=== PATIENT | female | born 2000 | race Caucasian/White ===

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

== ENCOUNTER → 2019-07-23 | Outpatient (CLI) | payer BC, SELFPAY ==
--- NOTE | 2019-07-23 15:07 | US_ITS ---
STUDY: THYROID ULTRASOUND REASON FOR EXAM: Female, 18 years old. ENLARGED THYROID TECHNIQUE: Ultrasound evaluation of the thyroid was performed with real-time and static kaiser-scale imaging. COMPARISON: None. FINDINGS: RIGHT LOBE: The right lobe of the thyroid gland measures 4.2 x 1.6 x 1.6 cm. There is a homogeneous echotexture. There are no demonstrated solid, cystic or complex lesions. LEFT LOBE: The left lobe of the thyroid gland measures 4.4 x 1.7 x 1.2 cm. There is a homogeneous echotexture. There are no demonstrated solid, cystic or complex lesions. ISTHMUS: The isthmus measures 3 mm. US/Thyroid IMPRESSION: Normal ultrasound examination of the thyroid. Electronically Signed: Chuy Ortega MD at 13:01 EDT , Service support ,
== END | disposition home or self-care (01) ==
LOC: US 15:05
PROVIDERS: PCP Family Medicine; Referring Provider Family Medicine; Visit Provider Family Medicine
DX: E01.0 Iodine-deficiency related diffuse (endemic) goiter (principal)
CPT/HCPCS: 76536

== ENCOUNTER → 2019-07-31 | Outpatient (CLI) | payer BC, SELFPAY ==
[2019-07-31 17:38] LABS: Absolute Lymphocyte Count 2.97 X10^3/uL (0.83-4.51); Absolute Neutrophil Count 5.2 X10^3/uL (2.0-7.7); Basophil# 0.07 X10^3/uL; Basophil% 0.8 % (0-1); Eosinophil# 0.16 X10^3/uL; Eosinophils% 1.8 % (0-5); Hematocrit 41.9 % (37-47); Hemoglobin 13.8 g/dL (12.0-15.0); Lymphocyte # 2.97 X10^3/ul (4.0); Lymphocyte % 32.8 % (19-41); Mean Corp Hgb Conc 32.9 g/dL (32-36); Mean Corpuscular Hgb 27.3 pg (27.0-32.0); Mean Platelet Vol. 10.1 fl (6.2-12.0); Monocyte# 0.57 X10^3/uL; Monocyte% 6.3 % (0-10); NRBC Flagged by Analyzer 0 % (0-5); Neutrophil # 5.24 X10^3/uL (2.7-7.7); Neutrophil % 57.9 % (47-70); Platelet Count 345 K/mm3 (150-450); RBC Distribution Width CV 14.6 % (11.6-14.6); RBC Distribution Width SD 43.8 fl (35.1-43.9); Red Blood Count 5.05 M/mm3 (4.2-5.4); White Blood Count 9.1 K/mm3 (4.4-11.0)
[2019-07-31 19:03] LABS: ALB/GLOB Ratio 0.9 RATIO (0.9-2.4); AST(SGOT) 16 U/L (15-37); Alanine Aminotransfer ALT/SGPT 25 U/L (13-56); Albumin, Serum 3.9 g/dL (3.2-5.0); Alkaline Phosphatase 81 U/L (45-117); Anion Gap 9 (5-15); BUN 11 mg/dL (7-18); BUN/Creat Ratio 12.9 RATIO (10-20); Calcium,Total 8.7 mg/dL (8.5-10.1); Chloride 105 mmol/L (98-107); Creatinine, Serum 0.85 mg/dL (0.55-1.02); EST Glomerular Filtration Rate 91 mL/min (>60); Est Glom Filt Rate - Afr Amer 110 mL/min (>60); Globulin 4.2 g/dL (2.2-4.2); Glucose 84 mg/dL (74-106); Potassium 3.7 mmol/L (3.5-5.1); Protein, Total 8.1 g/dL (6.4-8.2); Sodium Level 138 mmol/L (136-145); T4 Free Direct 0.88 ng/dL (0.76-1.46); Thyroid Stim Hormone (TSH) 1.21 uIU/mL (0.358-3.74)
[2019-08-04 15:41] LABS: Anti-Thyroglobulin AB < 1.0 IU/mL (0.0-0.9); Thyroglobulin, Serum Qt. 6.7 ng/mL (1.5-38.5); Thyroid Peroxidase AB < 9 IU/mL (0-26)
== END | disposition home or self-care (01) ==
LOC: MFPLAB 15:33
PROVIDERS: PCP Family Medicine; Referring Provider Family Medicine; Visit Provider Family Medicine
DX: E55.9 Vitamin D deficiency, unspecified (principal); J45.909 Unspecified asthma, uncomplicated; E01.0 Iodine-deficiency related diffuse (endemic) goiter; R63.5 Abnormal weight gain
CPT/HCPCS: 36415; 80053; 82306; 84432; 84439; 84443; 85025; 86376; 86800

== ENCOUNTER → 2021-05-12 09:24 | Outpatient (CLI) | payer BC, SELFPAY ==
[2021-05-12 11:11] LABS: Vitamin D,25 Hydroxy 23.3 ng/mL
== END ==
PROVIDERS: PCP Family Medicine; Visit Provider Family Medicine
DX: E55.9 Vitamin D deficiency, unspecified (principal)
CPT/HCPCS: 36415; 82306

== ENCOUNTER → 2021-09-19 | Outpatient (CLI) | payer BC, SELFPAY ==
[2021-09-26 14:25] LABS: HPV Reflexed? NOT INDICATED
== END | disposition home or self-care (01) ==
LOC: LABSPEC 17:31
PROVIDERS: PCP Family Medicine; Visit Provider Nurse Practitioner Women's Health
DX: Z12.4 Encounter for screening for malignant neoplasm of cervix (principal)
CPT/HCPCS: 88175; G0145

== ENCOUNTER → 2021-10-04 | Outpatient (CLI) | payer BC, SELFPAY | END | disposition home or self-care (01) | LOC: PAVLAB 09:29 | PROVIDERS: PCP Family Medicine; Referring Provider Nurse Practitioner Women's Health; Visit Provider Nurse Practitioner Women's Health | DX: N97.0 Female infertility associated with anovulation (principal) | CPT/HCPCS: 36415 ==

== ENCOUNTER → 2021-10-24 | Outpatient (CLI) | payer BC, SELFPAY ==
[2021-10-24 10:45] LABS: Progesterone Level 0.49 ng/mL (See Comment)
[2021-10-24 10:59] LABS: Prolactin 11.4 ng/mL; Thyroid Stim Hormone (TSH) 2.24 uIU/mL (0.358-3.74)
[2021-10-27 17:38] LABS: Testosterone Free 4.5 pg/mL (0.0-4.2)
== END | disposition home or self-care (01) ==
PROVIDERS: PCP Family Medicine; Referring Provider Nurse Practitioner Women's Health; Visit Provider Nurse Practitioner Women's Health
DX: N97.0 Female infertility associated with anovulation (principal); N92.6 Irregular menstruation, unspecified
CPT/HCPCS: 36415; 82627; 84144; 84146; 84402; 84443; 82626

== ENCOUNTER → 2021-12-02 | Outpatient (CLI) | payer BC, SELFPAY ==
[2021-12-02 10:52] LABS: Progesterone Level 3.73 ng/mL (See Comment)
== END | disposition home or self-care (01) ==
LOC: LAB 09:55
PROVIDERS: PCP Family Medicine; Referring Provider Nurse Practitioner Women's Health; Visit Provider Nurse Practitioner Women's Health
DX: N92.6 Irregular menstruation, unspecified (principal)
CPT/HCPCS: 36415; 84144

== ENCOUNTER → 2022-01-12 | Outpatient (CLI) | payer BC, SELFPAY ==
[2022-01-12 10:54] LABS: Vista UDS pH Range 5
[2022-01-12 11:06] LABS: Amphetamine Urine VISTA NEGATIVE (<1000 ng/mL); Barbiturate Urine VISTA NEGATIVE (< 200 ng/mL); Benzodiazepine Urine VISTA NEGATIVE (< 200 ng/mL); Cocaine Urine VISTA NEGATIVE (< 300 ng/mL); Ecstacy Urine VISTA NEGATIVE (< 500 ng/mL); Methadone Urine VISTA NEGATIVE (< 300 ng/mL); PCP Urine VISTA NEGATIVE (< 25 ng/mL); THC Urine VISTA NEGATIVE (< 50 ng/mL)
[2022-01-13 22:06] LABS: Chlamydia By Nucleic Acid AMP Negative (Negative)
[2022-01-15 14:25] LABS: Gonococcus By Nucleic Acid AMP Negative (Negative)
== END | disposition home or self-care (01) ==
LOC: LABSPEC 12:53
PROVIDERS: PCP Family Medicine; Visit Provider Obstetrics & Gynecology
DX: Z34.91 Encounter for supervision of normal pregnancy, unspecified, first trimester (principal)
CPT/HCPCS: 80307; 87086; 87088; 87491; 87591

== ENCOUNTER → 2022-02-10 | Outpatient (CLI) | payer BC, SELFPAY ==
[2022-02-10 10:49] LABS: Absolute Lymphocyte Count 2.94 X10^3/uL (0.83-4.51); Absolute Neutrophil Count 7.1 X10^3/uL (2.0-7.7); Basophil# 0.08 X10^3/uL; Basophil% 0.7 % (0-1); Eosinophil# 0.01 X10^3/uL; Eosinophils% 0.1 % (0-5); Hematocrit 40.5 % (37-47); Hemoglobin 13.6 g/dL (12.0-15.0); Lymphocyte # 2.94 X10^3/ul (0.83-4.51); Lymphocyte % 27.5 % (19-41); Mean Corp Hgb Conc 33.6 g/dL (32-36); Mean Corpuscular Hgb 28.8 pg (27.0-32.0); Mean Corpuscular Volume 85.8 fL (81-99); Mean Platelet Vol. 9.7 fl (6.2-12.0); Monocyte# 0.57 X10^3/uL; Monocyte% 5.3 % (0-10); NRBC Flagged by Analyzer 0 % (0-5); Neutrophil # 7.06 X10^3/uL (2.7-7.7); Neutrophil % 65.9 % (47-70); Platelet Count 326 K/mm3 (150-450); RBC Distribution Width SD 44.1 fl (35.1-43.9); Red Blood Count 4.72 M/mm3 (4.2-5.4); White Blood Count 10.7 K/mm3 (4.4-11.0)
[2022-02-10 11:31] LABS: NATERA MAILED SPECIMEN
[2022-02-10 11:43] LABS: HIV - WCH Non-Reactive (Nonreactive); Hepatitis B Surface Antigen Non-Reactive (Nonreactive); Hepatitis C Antibody Non-Reactive (Nonreactive); Rubella IgG Reactive (Nonreactive); Syphilis Antibodies Non-reactive
== END | disposition home or self-care (01) ==
LOC: PAVLAB 10:21
PROVIDERS: Obstetrics & Gynecology; PCP Family Medicine; Referring Provider Registered Nurse; Visit Provider Registered Nurse
DX: Z34.81 Encounter for supervision of other normal pregnancy, first trimester (principal)
CPT/HCPCS: 36415; 85025; 86703; 86762; 86780; 86803; 86850; 86900; 86901; 87340

== ENCOUNTER → 2022-04-24 | Outpatient (CLI) | payer BC, SELFPAY ==
--- NOTE | 2022-04-24 10:11 | US_ITS ---
EXAM: US , LIMITED CLINICAL INDICATION: growth -- Every 4 weeks growth US TECHNIQUE: Real-time limited ultrasound of the maternal uterus with image documentation. This report was created using [employer] report generation technology. COMPARISON: None. FINDINGS: FETUS: Single live intrauterine . GESTATIONAL AGE: Gestational age by ultrasound: 23 weeks 3 days, SHANNAN 08/18/2022. Gestational age by LMP: 23 weeks 2 days, SHANNAN 08/19/2022. EFW: Estimated weight: 627 g, 64th percentile. BPD: 5.5 cm, 22 weeks 6 days. HC: 21.4 cm, 23 weeks 3 days. AC: 19.2 cm, 23 weeks 6 days. FL: 4.3 cm, 23 weeks 6 days. POSITION: Breech position. HEART RATE: heart rate: 144 bpm. PLACENTA: The placenta is anterior with no previa or other abnormality. AMNIOTIC FLUID: The amount of amniotic fluid is within normal limits for the gestational age. CERVIX: The cervix measures 5.1 cm in length. ADNEXA: The ovaries were not visualized due to the gravid uterus. US/OB Limited With Biometrics IMPRESSION: Single live intrauterine measuring 23 weeks 3 days with no acute abnormalities identified. Electronically Signed: Eloy Bowie MD at 1:23 EST ,
== END | disposition home or self-care (01) ==
LOC: US 10:08
PROVIDERS: PCP Family Medicine; Referring Provider Obstetrics & Gynecology; Visit Provider Obstetrics & Gynecology
DX: O99.212 Obesity complicating pregnancy, second trimester (principal); Z3A.23 23 weeks gestation of pregnancy
CPT/HCPCS: 76816

== ENCOUNTER → 2022-05-25 | Outpatient (CLI) | payer BC, SELFPAY ==
--- NOTE | 2022-05-25 08:39 | US_ITS ---
STUDY: SECOND AND THIRD TRIMESTER OBSTETRICAL ULTRASOUND - LIMITED REASON FOR EXAM: Female, 21 years old . growth LMP: 11/12/2021 PRIOR ULTRASOUND: Comparison is made with prior study dated 04/24/2022. TECHNIQUE: Transabdominal TECHNICAL QUALITY: Adequate. FINDINGS: There is a single intrauterine fetus. The fetus is in a cephalic presentation. There is demonstrated cardiac activity with a heart rate of 130 bpm. There is a normal amniotic fluid volume. The largest amniotic fluid pocket measures 6.16 cm. The amniotic fluid index (BARBRA) is 15.63 cm. The placenta is anterior in location and is not low lying. There are Grade 0 placental changes. The cervix measures 4 cm in length. BIOMETRY: BPD: 6.83 cm: 27 weeks, 3 days HC: 25.66 cm: 27 weeks, 6 days AC: 24.06 cm: 28 weeks, 2 days FL: 5.29 cm: 28 weeks, 1 days Age by LMP: 27 weeks, 5 days. SHANNAN by LMP: 08/19/2022. age by prior US: 27 weeks, 6 days. SHANNAN by prior US: 08/18/2022. age by current US: 27 weeks, 6 days. SHANNAN by current US: 08/18/2022. Estimated weight: 1192 grams, +/- 179 grams, 57 percentile. US/OB Limited With Biometrics IMPRESSION: Single live intrauterine gestation with a mean gestational age of 27 weeks and 6 days. The measurements obtained today fall within the normal expected range. Electronically Signed: Evangelist Boyer MD at 13:03 EST ,
== END | disposition home or self-care (01) ==
LOC: US 08:37
PROVIDERS: PCP Family Medicine; Referring Provider Obstetrics & Gynecology; Visit Provider Obstetrics & Gynecology
DX: O99.212 Obesity complicating pregnancy, second trimester (principal); Z3A.27 27 weeks gestation of pregnancy
CPT/HCPCS: 76816

== ENCOUNTER 2022-06-07 14:20 | Outpatient (CLI) | payer BC, SELFPAY ==
[2022-06-07 14:50] LABS: Absolute Lymphocyte Count 2.35 X10^3/uL (0.83-4.51); Basophil# 0.04 X10^3/uL; Basophil% 0.4 % (0-1); Hematocrit 35.6 % (37-47); Hemoglobin 11.8 g/dL (12.0-15.0); Lymphocyte # 2.35 X10^3/ul (0.83-4.51); Lymphocyte % 23.1 % (19-41); Mean Corp Hgb Conc 33.1 g/dL (32-36); Mean Corpuscular Hgb 28.2 pg (27.0-32.0); Mean Corpuscular Volume 85.2 fL (81-99); Mean Platelet Vol. 10.5 fl (6.2-12.0); Monocyte# 0.72 X10^3/uL; Monocyte% 7.1 % (0-10); NRBC Flagged by Analyzer 0 % (0-5); Neutrophil # 6.98 X10^3/uL (2.7-7.7); Neutrophil % 68.5 % (47-70); Platelet Count 329 K/mm3 (150-450); RBC Distribution Width CV 13.9 % (11.6-14.6); RBC Distribution Width SD 42.8 fl (35.1-43.9); Red Blood Count 4.18 M/mm3 (4.2-5.4); White Blood Count 10.2 K/mm3 (4.4-11.0)
[2022-06-07 15:06] LABS: Glucose Challenge Gest 1H 50g 169 mg/dL (70-140)
[2022-06-07 16:07] VITALS: BP 118/63; PULSE 91; TEMP 37.1; O2SAT 97
[2022-06-07 16:11] VITALS: BMI 38.2
--- NOTE | 2022-06-07 16:17 | US_ITS ---
STUDY: RENAL ULTRASOUND - COMPLETE REASON FOR EXAM: Female, 21 years old. Abd and back pain , , rule out kidney stone TECHNIQUE: Ultrasound evaluation of the kidneys was performed with real-time and static lawler-scale imaging. COMPARISON: None. FINDINGS: RIGHT KIDNEY: Normal location of the right kidney, which is normal in size. The right kidney measures 11.4 cm. There is a normal cortex of the right kidney. The renal cortex measures 1.7 cm. There is no right renal mass or cyst. There are no right renal calculi. There is no right hydronephrosis. DISTAL RIGHT URETER: There is non-visualization of the distal right ureter. There is no demonstrated right ureterovesical junction calculus. There is no demonstrated right ureteral jet. LEFT KIDNEY: Normal location of the left kidney, which is normal in size. The left kidney measures 13.1 cm. There is a normal cortex of the left kidney. The renal cortex measures 2.2 cm. There is no left renal mass or cyst. There are no left renal calculi. There is no left hydronephrosis. DISTAL LEFT URETER: There is non-visualization of the distal left ureter. There is no demonstrated left ureterovesical junction calculus. There is no demonstrated left ureteral jet. BLADDER: The distended urinary bladder has a volume of 158 ml. There is a normal wall thickness of the distended urinary bladder. There is no demonstrated mass within the urinary bladder. There are no demonstrated bladder calculi. US/Kidney and Bladder IMPRESSION: Normal ultrasound of the kidneys and urinary bladder. Electronically Signed: Jed Jurado MD at 18:13 EST ,
[2022-06-07] MEDS: Lactated Ringers 1,000 ML 999 ML IV ×2 (16:40→18:50)
[2022-06-07] MEDS: Ondansetron 4 MG/2 ML Vial IV (16:40)
[2022-06-07 16:52] LABS: HIV - WCH Non-Reactive (Nonreactive); Syphilis Antibodies Non-reactive
[2022-06-07] MEDS: 0.9% Saline Lock 10 ML Syringe IV ×2 (17:54→20:19)
[2022-06-07 19:23] VITALS: BP 125/60; PULSE 71
[2022-06-07 19:24] VITALS: TEMP 36.4
[2022-06-07 19:24] LABS: Mucous, Urine 0 SEEN /hpf (<or=2+); Red Blood Cells-Urine 0 SEEN /hpf (0-5)
[2022-06-07 19:41] LABS: Color, Urine Yellow (Yellow); Glucose, Dipstick 250 mg/dl (Normal); Ketone-Dipstick Negative (Negative); Nitrite-Dipstick Negative (Negative); Occult Blood-Urine Negative /ul (Negative); Protein-Dipstick 30 mg/dl (Negative); Specific Gravity, Urine 1.015 (1.002-1.030); Urine Bilirubin Dipstick Negative (Negative); Urine Clarity Clear (Clear); Urine Urobilinogen Normal (Normal)
[2022-06-07 19:42] LABS: Bacteria 1+ /hpf (None Seen); Leukocyte Esterase-Dipstick 25 /ul (Negative); Squamous Epithelial Cells - UA 5-10 SEEN /hpf (5-10); White Blood Cells 0-5 SEEN /hpf (0-5)
--- NOTE | 2022-06-07 20:04 | OB.TRI.HP_ITS ---
HPI - General HPI Narrative KARLENE RIGGINS, is a 21 F who presents at 29+4 with abdominal pain radiating to lower back occuring every 5-10 minutes. active fetus. denies lof or vb. pain started acutely yesterday and created a band like pain around her abdomen at the level of the umbilicus. ambulation worsens pain, rest and lying down improves. Maternal Data Information SHANNAN Calculator Estimated Delivery Date Method Current WG Current Estimate 08/19/22 LMP (Certain) 29w 4d Other Estimates 08/19/22 Ultrasound #1 29w 4d PFSH PFSH Medical History Asthma Gestational diabetes mellitus (GDM) affecting Home Medications albuterol sulfate 90 mcg/actuation aerosol inhaler (ProAir HFA) 1 - 2 puff inhalation Q4H PRN PRN Asthma #8.5 grams 01/05/22 [Rx Last Taken 1 Day Ago ~06/06/22] ergocalciferol (vitamin D2) 1,250 mcg (50,000 unit) capsule 1,250 mcg PO QWEEK 01/05/22 [History Last Taken 2 Months Ago ~04/07/22] multivitamin no.47-iron fum 27 mg-folate no.1 1 mg-dha 300 mg capsule (PNV-DHA) 2 cap PO DAILY 01/05/22 [History Last Taken 1 Day Ago ~06/06/22] sertraline 150 mg capsule 150 mg PO DAILY #90 caps 05/10/22 [Rx Last Taken 1 Day Ago ~06/06/22] nitrofurantoin monohydrate/macrocrystals 100 mg capsule (Macrobid) 100 mg PO Q12H 5 days #10 caps 06/07/22 [Rx Last Taken Unknown] Allergy/AdvReac Type Severity Reaction Status Date / Time kiwi Allergy Anaphylaxis Verified 06/07/22 16:20 peanut Allergy Anaphylaxis Verified 06/07/22 16:20 Penicillins Allergy Hives Verified 06/07/22 16:20 pineapple Allergy Anaphylaxis Verified 06/07/22 16:20 shrimp Allergy Hives Verified 06/07/22 16:20 Family History Father Hypertension Epilepsy AVM (arteriovenous malformation) Mother FRANCO (nonalcoholic steatohepatitis) Hypertension Epilepsy Surgical History H/O removal of cyst S/P Social History adopted: No household members: spouse and children number of children: 1 current occupational status: unemployed current occupation: [employer] current occupational exposures/hazards: No pets and animals: Yes (Not managing the litterbox) pets and animals: cat(s) history of recent travel: No sexually active: Yes Smoking Status: Former smoker Tobacco: How many years used: 1 how long ago did patient quit smokin years alcohol intake: never substance use type: does not use well-balanced diet: about half the time caffeine: Yes Type: carbonated beverages Number of servings: 1 eating out: 4 or more times/week during the past year weight has: remained stable what type of physical activity do you participate in: none suzette/moravian: Voodoo seatbelt use: always do you feel safe at home: Yes 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 Date Name GA/Weeks Outcome Route Bth Weight Gen Labor Lgth Anesthesia Del [facility] Provider FOB 10/25/18 Kelsey 9'3 Female Delivery Date: 10/25/18 Last Updated by: MD dr garfield Quevedo. 9lbs elective primary Visit Details Expected Delivery Route/Plan RLTCS unless spontaneous labor then would consider TOLAC Plans Covid status: discussed Flu vaccine: obtaining 02/11 Tdap vaccine:obtained Rhogam: given 06/07 LARC form signed: [] Problem list reviewed and updated with the most current plan of care details and appropriate orders placed. Relevant counseling for the gestational age provided. Continue routine care and follow up unless otherwise noted in visit notes/problem list details OB Flowsheet Initial Weight: Not Recorded Date -?-?-?-?-?-?-?-?-?-?-?-?- EGA Weight BP Urine Prot -?-?-?-?-?-?-?-?-?-?-?-?- Glucose FHR FuHt Pres Dilation -?-?-?-?-?-?-?-?-?-?-?-?- Effaced St Visit Note 01/12/22 -?-?-?-?-?-?-?-?-?-?-?-?- 8w 5d 246 lb 132/86 -?-?-?-?-?-?-?-?-?-?-?-?- 180 -?-?-?-?-?-?-?-?-?-?-?-?- SM- CRL cons wit h LMP 02/10/22 -?-?-?-?-?-?-?-?-?-?-?-?- 12w 6d 246 lb 4 oz 111/68 Nega tive -?-?-?-?-?-?-?-?-?-?-?-?- Negative 155 -?-?-?-?-?-?-?-?-?-?-?-?- LC- no cramping/ vb. obtaining NOB labs w/genetic screening today. 03/10/22 -?-?-?-?-?-?-?-?-?-?-?-?- 16w 6d 241 lb 100/72 Negative -?-?-?-?-?-?-?-?-?-?-?-?- Negative 150 -?-?-?-?-?-?-?-?-?-?-?-?- SM- no vb lof cr amping 05/11/22 -?-?-?-?-?-?-?-?-?-?-?-?- 25w 5d 243 lb 4 oz 124/78 Nega tive -?-?-?-?-?-?-?-?-?-?-?-?- Negative 154 25 -?-?-?--?-?-?-?-?-?-?-?-?- MH-No VB, LOF. G ood FM. Denies concerns. 06/07/22 -?-?-?-?-?-?-?-?-?-?-?-?- 29w 4d 243 lb 8 oz 119/75 -?-?-?-?-?-?-?-?-?-?-?-?- 140 29 0 -?-?-?-?-?-?-?-?-?-?-?-?- 0 -4 LC- pt wit h 12/21 abdominal pain that started yesterday, radiated to back. not improved with rest, hydration, tylenol or heat. closed to VE. sent to L&D for r/o UTI, kidney stones, PTL. tdap and rhogam given today NST FHR Rate Baby A Baseline: 120 Variability:: Moderate Accelerations:: 15 x 15 Decelerations:: None NST Reactive:: Yes FHR Category:: Category I Uterine Activity:: occ ctx. 30-40 seconds. no contractions following IVF bolus. Assessment & Plan (1) UTI (urinary tract infection) during : COMMENT: Macrobid started on 06/07. follow UC (2) Impaired glucose in , antepartum: COMMENT: failed one hour glucose. 3hour gtt ordered. (3) Rh negative status during : COMMENT: Rhogam @ 28 weeks and PRN bleeding. Rhogam given 06/07/22 (4) Previous delivery affecting : COMMENT: Requesting RLTCS with SM on 08/11/22(FOB bday) (5) Obesity affecting : QUALIFIERS: Trimester: second trimester Qualified Code(s): O99.212 - Obesity complicating , second trimester COMMENT: 1 TM GCT encoruaged healthy weight gain, growth US Q 4 weeks 04/24 nl growth, 05/25 nl growth EFW 1192+/- 179 57% (6) Supervision of high risk , antepartum: COMMENT: PRR , SHANNAN 08/19/22, girl bridgett Cole, - Abisai (7) : QUALIFIERS: Weeks of gestation: 29 weeks Qualified Code(s): Z3A.29 - 29 weeks gestation of COMMENT: NIPT low risk, discussed carrier testing, declined afp. (8) Depression: COMMENT: sertraline 150mg daily PLAN: Plan Patient presents for triage evaluation secondary to abdominal pain FHT: Moderate variability reactive no decelerations category I tracing [place]: irreg Contractions Assessment and plan: Reactive NST, reassuring maternal and status patient discharged to home to follow-up in office. See problem list details for additional plan information. Charges/Coding Procedures Urinary/Genital [id number]: [id number] non-stress test Interp
[2022-06-07] MEDS: Nitrofurantoin Macrocrystals 100 MG Capsule PO (20:41)
== END 2022-06-07 20:48 | disposition home or self-care (01) ==
LOC: PAVLAB 14:21 → LAB 14:25 → WPOUT 16:03 → WP 16:04
PROVIDERS: Registered Nurse; PCP Family Medicine; Referring Provider Obstetrics & Gynecology; Visit Provider Obstetrics & Gynecology
DX: O09.93 Supervision of high risk pregnancy, unspecified, third trimester (principal); O23.43 Unspecified infection of urinary tract in pregnancy, third trimester; Z87.891 Personal history of nicotine dependence; R10.9 Unspecified abdominal pain; O99.810 Abnormal glucose complicating pregnancy; Z67.91 Unspecified blood type, Rh negative; O99.213 Obesity complicating pregnancy, third trimester; Z3A.29 29 weeks gestation of pregnancy; O99.343 Other mental disorders complicating pregnancy, third trimester
CPT/HCPCS: 96374; 36415; 76770; 81001; 82950; 85025; 86703; 86780; 86850; 86900; 86901; 87086; 87088; 99221; J7120; A4216; G0378; J2405

== ENCOUNTER → 2022-06-26 | Outpatient (CLI) | payer BC, SELFPAY ==
--- NOTE | 2022-06-26 08:51 | US_ITS ---
STUDY: SECOND AND THIRD TRIMESTER OBSTETRICAL ULTRASOUND REASON FOR EXAM: Female, 21 years old growth LMP: 11/12/2021. TECHNIQUE: Transabdominal TECHNICAL QUALITY: Adequate. PRIOR ULTRASOUND: Comparison is made with prior study dated 05/25/2022. FINDINGS: There is a single intrauterine fetus. The fetus is in a cephalic presentation. There is demonstrated cardiac activity with a heart rate of 124 bpm. There is a normal amniotic fluid volume. The largest amniotic fluid pocket measures 6.3 cm. The amniotic fluid index (BARBRA) is 18.9 cm. The placenta is anterior in location and is not low lying. There are Grade 1 placental changes. The cervix measures 3.9 cm in length. The adnexal regions are not visualized. BIOMETRY: BPD: 8 cm: 32 weeks, 0 days HC: 30.4 cm: 33 weeks, 5 days AC: 30.4 cm: 34 weeks, 2 days FL: 6.4 cm: 33 weeks, 1 days CI: 77% FL/BPD: 80% FL/HC: FL/AC: 21% HC/AC: 1.00 age by current US: 32 weeks, 6 days. SHANNAN by current US: 08/15/2022. Estimated weight: 2257 grams, +/- 339 grams, 82 %. age by prior US: 32 weeks, 3 days. SHANNAN by prior US: 08/18/2022. Age by LMP: 32 weeks, 2 days. SHANNAN by LMP: 08/19/2022. US/OB Limited With Biometrics IMPRESSION: Single live intrauterine gestation with a mean gestational age of 32 weeks and 3 days. The measurements obtained today fall within the normal expected range. Electronically Signed: Evangelist Boyer MD at 12:36 EST ,
== END | disposition home or self-care (01) ==
LOC: US 08:49
PROVIDERS: PCP Family Medicine; Visit Provider Obstetrics & Gynecology
DX: O09.212 Supervision of pregnancy with history of pre-term labor, second trimester (principal); Z3A.00 Weeks of gestation of pregnancy not specified
CPT/HCPCS: 76816

== ENCOUNTER 2022-07-03 11:30 | Outpatient (RCR) | payer BC, SELFPAY | END 2022-07-11 23:59 | LOC: DC 11:30 | PROVIDERS: PCP Family Medicine; Visit Provider Nurse Practitioner Women's Health | DX: O24.419 Gestational diabetes mellitus in pregnancy, unspecified control (principal) | CPT/HCPCS: G0108 ==

== ENCOUNTER → 2022-07-24 | Outpatient (CLI) | payer BC, SELFPAY ==
--- NOTE | 2022-07-24 10:36 | US_ITS ---
STUDY: SECOND AND THIRD TRIMESTER OBSTETRICAL ULTRASOUND - LIMITED REASON FOR EXAM: Female, 21 years old routine survey LMP: 11/12/2021 PRIOR ULTRASOUND: 06/26/2022 TECHNIQUE: Transabdominal TECHNICAL QUALITY: Adequate. FINDINGS: There is a single intrauterine fetus. The fetus is in a cephalic presentation. There is demonstrated cardiac activity with a heart rate of 130 bpm. There is a normal amniotic fluid volume. The largest amniotic fluid pocket measures 6.8 cm. The amniotic fluid index (BARBRA) is 21.8 cm. The placenta is anterior in location and is not low lying. There are Grade 2 placental changes. The cervix was not measured BIOMETRY: BPD: 8.8 cm: 35 weeks, 5 days HC: 32.6 cm: 37 weeks, 0 days AC: 35.0 cm: 38 weeks, 6 days FL: 7.2 cm: 37 weeks, 0 days age by prior US: 36 weeks, 6 days. SHANNAN by prior US: 08/15/2022. age by current US: 37 weeks, 3 days. SHANNAN by current US: 08/11/2022. Estimated weight: 3361 grams, +/- 501 grams, 90 percentile. US/OB Limited With Biometrics IMPRESSION: Single live intrauterine at 37 weeks, 3 days by current ultrasound with SHANNAN of 08/11/2022. Heart rate at 130 bpm. No suspicious sonographic findings, normal growth noted since the previous study Electronically Signed: Jamey Campbell MD at 12:10 EDT ,
== END | disposition home or self-care (01) ==
LOC: US 10:34
PROVIDERS: PCP Family Medicine; Referring Provider Nurse Practitioner Women's Health; Visit Provider Nurse Practitioner Women's Health
DX: O24.419 Gestational diabetes mellitus in pregnancy, unspecified control (principal); Z3A.00 Weeks of gestation of pregnancy not specified
CPT/HCPCS: 76816

== ENCOUNTER → 2022-07-25 | Outpatient (CLI) | payer BC, SELFPAY | END | disposition home or self-care (01) | LOC: LABSPEC 15:43 | PROVIDERS: PCP Family Medicine; Visit Provider Nurse Practitioner Women's Health | DX: Z34.90 Encounter for supervision of normal pregnancy, unspecified, unspecified trimester (principal) | CPT/HCPCS: 87081 ==

== ENCOUNTER → 2022-08-03 | Outpatient (CLI) | payer BC, SELFPAY ==
[2022-08-03 12:22] LABS: ROM Internal Control Test YES-OK TO RESULT pt. (Internal QC); ROM Patient Test Negative (Negative)
== END | disposition home or self-care (01) ==
LOC: LABSPEC 11:23
PROVIDERS: PCP Family Medicine; Referring Provider Obstetrics & Gynecology; Visit Provider Obstetrics & Gynecology
DX: O26.899 Other specified pregnancy related conditions, unspecified trimester (principal); R35.0 Frequency of micturition; N89.8 Other specified noninflammatory disorders of vagina; Z3A.00 Weeks of gestation of pregnancy not specified; O99.891 Other specified diseases and conditions complicating pregnancy
CPT/HCPCS: 84112; 87086; 87088

== ENCOUNTER 2022-08-07 15:40 | Inpatient (IN) | payer BC, SELFPAY ==
[2022-08-07] VITALS (26 sets, daily range): BP systolic 107–142; BP diastolic 41–90; PULSE 77–102; RESP 12–18; TEMP 36.2–37.2; O2SAT 93–100; BMI 40.0
[2022-08-07 14:36] LABS: Hematocrit 35.8 % (37-47); Hemoglobin 11.9 g/dL (12.0-15.0); Mean Corp Hgb Conc 33.2 g/dL (32-36); Mean Corpuscular Hgb 26.7 pg (27.0-32.0); Mean Corpuscular Volume 80.4 fL (81-99); Mean Platelet Vol. 11.2 fl (6.2-12.0); Platelet Count 266 K/mm3 (150-450); RBC Distribution Width CV 14.5 % (11.6-14.6); RBC Distribution Width SD 42.1 fl (35.1-43.9); Red Blood Count 4.45 M/mm3 (4.2-5.4)
[2022-08-07 15:17] LABS: Protein, Urine (Random) 116.6 mg/dL (<11.9); Protein:Creat Ratio 440 mg/g CRE (0-200)
[2022-08-07 15:20] LABS: AST(SGOT) 13 U/L (15-37); Alanine Aminotransfer ALT/SGPT 19 U/L (13-56); Creatinine, Serum 0.55 mg/dL (0.55-1.02); EST Glomerular Filtration Rate 147 mL/min (>60); Est Glom Filt Rate - Afr Amer 178 mL/min (>60); Estimated Creatinine Clearance 156.02 ml/min
[2022-08-07] MEDS: Lactated Ringers 1,000 ML 999 ML IV (16:00)
[2022-08-07 16:18] LABS: Absolute Lymphocyte Count 2.03 X10^3/uL (0.83-4.51); Absolute Neutrophil Count 5.3 X10^3/uL (2.0-7.7); Basophil# 0.04 X10^3/uL; Basophil% 0.5 % (0-1); Hematocrit 37.6 % (37-47); Hemoglobin 12.4 g/dL (12.0-15.0); Lymphocyte # 2.03 X10^3/ul (0.83-4.51); Lymphocyte % 25.3 % (19-41); Mean Corpuscular Hgb 26.3 pg (27.0-32.0); Mean Corpuscular Volume 79.8 fL (81-99); Mean Platelet Vol. 11.5 fl (6.2-12.0); Monocyte# 0.63 X10^3/uL; Monocyte% 7.8 % (0-10); NRBC Flagged by Analyzer 0 % (0-5); Platelet Count 295 K/mm3 (150-450); RBC Distribution Width CV 14.6 % (11.6-14.6); RBC Distribution Width SD 42.3 fl (35.1-43.9); Red Blood Count 4.71 M/mm3 (4.2-5.4)
[2022-08-07] MEDS: Acetaminophen 500 MG Tablet 1000 MG PO ×2 (16:38→22:28)
[2022-08-07] MEDS: Lactated Ringers 1,000 ML 150 ML IV (16:59)
--- NOTE | 2022-08-07 17:10 | HP.PCM.OB_ITS ---
HPI - General General Date of Admission: 08/07/22 HPI Narrative KARLENE RIGGINS, is a 21 F who presents with elevated bps and intermittent LEBRON, epigastric pain, proteinuria new onset preeclampsia. Maternal Data Information SHANNAN Calculator Estimated Delivery Date Method Current WG Current Estimate 08/19/22 LMP (Certain) 38w 2d Other Estimates 08/19/22 Ultrasound #1 38w 2d PFSH PFSH Medical History (Updated 08/07/22 @ 17:[address] Landy Villalta MD) Anxiety Asthma Asthma Gestational diabetes mellitus (GDM) affecting Home Medications albuterol sulfate 90 mcg/actuation aerosol inhaler (ProAir HFA) 1 - 2 puff inhalation Q4H PRN PRN Asthma #8.5 grams 01/05/22 [Rx Last Taken 1 Day Ago ~06/06/22] ergocalciferol (vitamin D2) 1,250 mcg (50,000 unit) capsule 1,250 mcg PO QWEEK 01/05/22 [History Last Taken 2 Months Ago ~04/07/22] multivitamin no.47-iron fum 27 mg-folate no.1 1 mg-dha 300 mg capsule (PNV-DHA) 2 cap PO DAILY 01/05/22 [History Last Taken 1 Day Ago ~06/06/22] sertraline 150 mg capsule 150 mg PO DAILY #90 caps 05/10/22 [Rx Last Taken 1 Day Ago ~06/06/22] blood sugar diagnostic (Blood Glucose Test strips) #50 ea 06/16/22 [Rx Last Taken Unknown] blood-glucose meter #1 ea 06/16/22 [Rx Last Taken Unknown] lancets #100 ea 06/16/22 [Rx Last Taken Unknown] hydroxyzine pamoate 50 mg capsule (Vistaril) 50 mg PO BID PRN anxiety #30 caps 08/03/22 [Rx Last Taken Unknown] Allergy/AdvReac Type Severity Reaction Status Date / Time kiwi Allergy Anaphylaxis Verified 08/03/22 10:21 peanut Allergy Anaphylaxis Verified 08/03/22 10:21 Penicillins Allergy Hives Verified 08/03/22 10:21 pineapple Allergy Anaphylaxis Verified 08/03/22 10:21 shrimp Allergy Hives Verified 08/03/22 10:21 Family History Father Hypertension Epilepsy AVM (arteriovenous malformation) Mother FRANCO (nonalcoholic steatohepatitis) Hypertension Epilepsy Surgical History H/O removal of cyst S/P Social History adopted: No household members: spouse and children number of children: 1 current occupational status: unemployed current occupation: [employer] current occupational exposures/hazards: No pets and animals: Yes (Not managing the litterbox) pets and animals: cat(s) history of recent travel: No sexually active: Yes Smoking Status: Former smoker Tobacco: How many years used: 1 how long ago did patient quit smokin years alcohol intake: never substance use type: does not use well-balanced diet: about half the time caffeine: Yes Type: carbonated beverages Number of servings: 1 eating out: 4 or more times/week during the past year weight has: remained stable what type of physical activity do you participate in: none suzette/taoist: Mu-Ism seatbelt use: always do you feel safe at home: Yes 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 Date Name GA/Weeks Outcome Route Bth Weight Gen [facility] FOB 10/[facility]18 Kelsey 9'3 Female Delivery Date: 10/25/18 Last Updated by: MD dr garfield Quevedo. 9lbs elective primary Visit Details Expected Delivery Route/Plan RLTCS unless spontaneous labor then would consider TOLAC Plans Covid status: discussed Flu vaccine: obtaining 02/11 Tdap vaccine:obtained Rhogam: given 06/07 LARC form signed: yes Problem list reviewed and updated with the most current plan of care details and appropriate orders placed. Relevant counseling for the gestational age provided. Continue routine care and follow up unless otherwise noted in visit notes/problem list details OB Flowsheet Initial Weight: Not Recorded Date -?-?-?-?-?-?-?-?-?-?-?-?- EGA Weight BP Urine Prot -?-?-?-?-?-?-?-?-?-?-?-?- Glucose FHR FuHt Pres Dilation -?-?-?-?-?-?-?-?-?-?-?-?- Effaced St Visit Note 01/12/22 -?-?-?-?-?-?-?-?-?-?-?-?- 8w 5d 246 lb 132/86 -?-?-?-?-?-?-?-?-?-?-?-?- 180 -?-?-?-?-?-?-?-?-?-?-?-?- SM- CRL cons wit h LMP 02/10/22 -?-?-?-?-?-?-?-?-?-?-?-?- 12w 6d 246 lb 4 oz 111/68 Nega tive -?-?-?-?-?-?-?-?-?-?-?-?- Negative 155 -?-?-?-?-?-?-?-?-?-?-?-?- LC- no cramping/ vb. obtaining NOB labs w/genetic screening today. 03/10/22 -?-?-?-?-?-?-?-?-?-?-?-?- 16w 6d 241 lb 100/72 Negative -?-?-?-?-?-?-?-?-?-?-?-?- Negative 150 -?-?-?-?-?-?-?-?-?-?-?-?- SM- no vb lof cr amping 05/11/22 -?-?-?-?-?-?-?-?-?-?-?-?- 25w 5d 243 lb 4 oz 124/78 Nega tive -?-?-?-?-?-?-?-?-?-?-?-?- Negative 154 25 -?-?-?-?-?-?-?-?-?-?-?-?- MH-No VB, LOF. G ood FM. Denies concerns. 06/07/22 -?-?-?-?-?-?-?-?-?-?-?-?- 29w 4d 243 lb 8 oz 119/75 -?-?-?-?-?-?-?-?-?-?-?-?- 140 29 0 -?-?-?-?-?-?-?-?-?-?-?-?- 0 -4 LC- pt wit h 8/10 abdominal pain that started yesterday, radiated to back. not improved with rest, hydration, tylenol or heat. closed to VE. sent to L&D for r/o UTI, kidney stones, PTL. tdap and rhogam given today 06/16/22 -?-?-?-?-?-?-?-?-?-?-?-?- 30w 6d 246 lb 4 oz 131/73 Nega tive -?-?-?-?-?-?-?-?-?-?-?-?- Negative 151 33 -?-?-?-?-?-?-?-?-?-?-?-?- JV- pt is unable to do her 3 hr and believes she is diabetic. she is willing to start monitoring glucose levels. no other complaitns. growth scan next week. also wants to get repeat section scheduled. 06/26/22 -?-?-?-?-?-?-?-?-?-?-?-?- 32w 2d 243 lb 6 oz 112/78 Nega tive -?-?-?-?-?-?-?-?-?-?-?-?- Negative 161 34 -?-?-?-?-?--?-?-?-?-?-?-?- MH-No Vb, LOF. G ood FM. Had growth US today and was told 82% EFW. Has not been checking glucose monitor not at pharmacy. 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 Rpt growth US 4 weeks. Appt with dietitian today. 07/18/22 -?-?-?-?-?-?-?-?-?-?-?-?- 35w 3d 252 lb 2 oz 126/79 Nega tive -?-?-?-?-?-?-?-?-?-?-?-?- Negative 122 -?-?-?-?-?-?-?-?-?-?-?-?- JV- pt states th at she had some fasting levels in low 100 range. She will collect for 3 more days and get fasting and 2 hr pp levels back to us. if needs medication, is requesting insulin and not metformin. (mom is allergic to it) 07/25/22 -?-?-?-?-?-?-?-?-?-?-?-?- 36w 3d 254 lb 8 oz 124/78 Nega tive -?-?-?-?-?-?-?-?-?-?-?-?- Negative 157 -?-?-?-?-?-?-?-?-?-?-?-?- MH-No VB, LOF. G ood FM. GBS. Reviewed glucose readings:FBS all WNL. Some highs on 2hr reads/all diet related. Will review with JV. 08/03/22 -?-?-?-?-?-?-?-?-?-?-?-?- 37w 5d 254 lb 4 oz 136/78 1+ -?-?-?-?-?-?-?-?-?-?-?-?- 100 g/dL 155 42 0.5 -?-?-?-?-?-?-?-?-?-?-?-?- 0 -4 JV- pt has moderate leukocytes and protein in the urine. will send urine for culture. also thinks is leaking fluid. ROM + collected. JV- glucose levels are withi n range. pt has moderate leukocytes and protein in the urine. will send urine for culture. also thinks is leaking fluid. ROM + collected. 08/07/22 -?-?-?-?--?-?-?-?-?-?-?-?- 38w 2d 255 lb 8.252 oz 132/ 86 136/90 134/85 138/83 140/85 142/87 -?-?-?-?-?-?-?-?-?-?-?-?- -?-?-?-?-?-?-?-?-?-?-?-?- NST FHR Rate Baby A Baseline: 130 Variability:: Moderate Accelerations:: 15 x 15 Decelerations:: None NST Reactive:: Yes FHR Category:: Category I Uterine Activity:: irregular ROS Constitutional Constitutional: Reports systems reviewed and no addt'l complaints, except as documented Eyes Eyes: Denies change in vision ENT HEENT: Reports systems reviewed and no addt'l complaints, except as documented; Denies headache(s) Cardiovascular Cardiovascular: Reports systems reviewed and no addt'l complaints, except as documented; Denies chest pain or dyspnea Respiratory/Chest Respiratory/Chest: Reports systems reviewed and no addt'l complaints, except as documented Gastrointestinal Gastrointestinal: Reports systems reviewed and no addt'l complaints, except as documented; Denies abdominal pain Genitourinary Genitourinary: Reports systems reviewed and no addt'l complaints, except as documented, contractions Details: present (irregular) and movement Details: present; Denies dysuria or genital lesions Musculoskeletal Musculoskeletal: Reports systems reviewed and no addt'l complaints, except as documented Neurologic Neurologic: Reports systems reviewed and no addt'l complaints, except as documented Endocrine Endocrinology: Reports systems reviewed and no addt'l complaints, except as documented Vital Signs Vital Signs Vital Signs: 08/07/22 13:28 08/07/22 13:28 08/07/22 13:29 Temperature Temperature Source Pulse Rate 93 102 H Blood Pressure 132/86 H BP Systolic 132 BP Diastolic 86 Pulse Ox 08/07/22 13:29 08/07/22 13:28 08/07/22 13:28 Temperature Temperature Source Temporal Pulse Rate 100 Blood Pressure BP Systolic BP Diastolic Pulse Ox 97 08/07/22 13:28 08/07/22 13:28 08/07/22 14:00 Temperature 98.3 F Temperature Source Pulse Rate Blood Pressure 136/90 H BP Systolic 136 BP Diastolic 90 Pulse Ox 97 08/07/22 14:00 08/07/22 14:16 08/07/22 14:16 Temperature Temperature Source Pulse Rate 93 77 Blood Pressure 134/85 H BP Systolic 134 BP Diastolic 85 Pulse Ox 08/07/22 14:31 08/07/22 14:31 08/07/22 15:05 Temperature Temperature Source Pulse Rate 93 Blood Pressure 138/83 H 140/85 H BP Systolic 138 140 BP Diastolic 83 85 Pulse Ox 08/07/22 15:05 08/07/22 16:11 08/07/22 16:11 Temperature Temperature Source Pulse Rate 80 94 Blood Pressure 142/87 H BP Systolic 142 BP Diastolic 87 Pulse Ox 08/07/22 16:25 08/07/22 16:25 08/07/22 16:25 Temperature 98.8 F Temperature Source Tympanic Pulse Rate Blood Pressure BP Systolic BP Diastolic Pulse Ox 100 Weight Weight: 255 lb 8.252 oz Body Mass Index (BMI) 40.0 Physical Exam Const alert, oriented x3, no apparent distress and healthy appearing HEENT normocephalic and moist oral mucous membranes Head and Scalp: atraumatic Neck full ROM, no lymphadenopathy, supple and thyroid normal General: trachea midline Lymph Lymphatic: no lymphadenopathy noted Chest inspection of chest normal Resp normal respiratory effort Cardio regular rate GI normal to inspection, nondistended, normoactive bowel sounds, soft to palpation and non-tender Inspection: gravid external exam normal Manual OB Exam: estimated gestational size appropriate, presentation cephalic, dilated, effaced and station Extremity normal to inspection General Extremity: Negative for edema Skin no rashes or lesions noted Neuro no focal motor deficits and deep tendon reflexes 2+ bilaterally Motor Exam: strength 5/5 throughout and clonus absent Psych mental status grossly normal Labs Labs Labs: Blood Type A NEGATIVE Antibody Screen NEGATIVE Hct 37.6 % (37-47) Hgb 12.4 g/dL (12.0-15.0) Obstetrics US Syphilis Total Ab Non-reactive VZV IgG Antibody 1164 index (Immune >165) Rubella IgG Antibody Reactive (Nonreactive) Hep Bs Antigen Non-Reactive (Nonreactive) Chlamydia DNA (VIKI) Negative (Negative) Neisseria gonorrhoeae DNA (VIKI) Negative (Negative) HIV 1&2 Antibody Non-Reactive (Nonreactive) Glucose 1 Hr 50 gm 169 mg/dL (70-140) H Rhogam given: Yes Miscellaneous Test Assessment & Plan (1) : QUALIFIERS: Weeks of gestation: 37 weeks Qualified Code(s): Z3A.37 - 37 weeks gestation of COMMENT: Neg GBS NIPT low risk, discussed carrier testing, declined afp. (2) Supervision of high risk , antepartum: COMMENT: PRR , SHANNAN 08/19/22, girl bridgett PC Kelsey, - Abisai (3) Seasonal allergies: COMMENT: Year round (4) Depression: COMMENT: sertraline 150mg daily, stable (5) Obesity affecting : QUALIFIERS: Trimester: second trimester Qualified Code(s): O99.212 - Obesity complicating , second trimester COMMENT: 1 TM GCT encoruaged healthy weight gain, growth US Q 4 weeks 04/24 nl growth, 05/25 nl growth EFW 1192+/- 179 57%, 06/26 growth nl 82% (6) Previous delivery affecting : COMMENT: Requesting RLTCS with SM on 08/14 @ 7:10 (7) Rh negative status during : COMMENT: Rhogam @ 28 weeks and PRN bleeding. Rhogam given 06/07/22 (8) UTI (urinary tract infection) during : COMMENT: Macrobid started on 06/07. follow UC neg (9) Impaired glucose in , antepartum: COMMENT: failed one hour glucose. 3hour gtt ordered. 2/2 PT declines to have 3 HR GTT (10) Need for Tdap vaccination: COMMENT: Given 06/07/22 (11) Gestational diabetes: COMMENT: Reviewed glucose readings w JV:will review again at [facility] 08/03 and probable metformin start. Growth US 90% (12) Pre-eclampsia in puerperium: PLAN: Plan proceed with RLTCS
--- NOTE | 2022-08-07 17:13 | EX.PCM.OBRPT ---
Assessment & Plan (1) Pre-eclampsia in puerperium: (2) : QUALIFIERS: Weeks of gestation: 37 weeks Qualified Code(s): Z3A.37 - 37 weeks gestation of COMMENT: Neg GBS NIPT low risk, discussed carrier testing, declined afp. (3) Supervision of high risk , antepartum: COMMENT: PRR , SHANNAN 08/19/22, girl bridgett Cole, - Abisai (4) Seasonal allergies: COMMENT: Year round (5) Depression: COMMENT: sertraline 150mg daily, stable (6) Obesity affecting : QUALIFIERS: Trimester: second trimester Qualified Code(s): O99.212 - Obesity complicating , second trimester COMMENT: 1 TM GCT encoruaged healthy weight gain, growth US Q 4 weeks 04/24 nl growth, 05/25 nl growth EFW 1192+/- 179 57%, 06/26 growth nl 82% (7) Previous delivery affecting : COMMENT: Requesting RLTCS with SM on 08/14 @ 7:10 (8) Rh negative status during : COMMENT: Rhogam @ 28 weeks and PRN bleeding. Rhogam given 06/07/22 (9) UTI (urinary tract infection) during : COMMENT: Macrobid started on 06/07. follow UC neg (10) Impaired glucose in , antepartum: COMMENT: failed one hour glucose. 3hour gtt ordered. 2/2 PT declines to have 3 HR GTT (11) Need for Tdap vaccination: COMMENT: Given 06/07/22 (12) Gestational diabetes: COMMENT: Reviewed glucose readings w JV:will review again at joss 08/03 and probable metformin start. Growth US 90% (13) delivery delivered: COMMENT: SM RLTCS 38 preeclampsia charlie Fuller Maternal Data Information SHANNAN Calculator Estimated Delivery Date Method Current WG Current Estimate 08/19/22 LMP (Certain) 38w 2d Other Estimates 08/19/22 Ultrasound #1 38w 2d Final SHANNAN Source: LMP Details Operative Information Pre-Operative Diagnosis: Previous Post-Operative Diagnosis: same Indications for : Repeat Elective Indications Narrative: Surgeon: Landy Villalta MD Classification: Scheduled Procedure Type: low transverse Type of Anesthesia: Spinal Special Medications: none Antibiotic Given: Clindamycin 600mg IV x1 and Gentamicin 1.5mg/kg IV x1 Drain: Anderson to straight drain Estimated Blood Loss: 900 Fluids Replaced: crystalloid Findings Description of Procedure: Spinal anesthesia was placed without difficulty. Anderson catheter was placed. The patient was placed in the dorsal supine position with leftward tilt. Patient was prepped and draped in the normal sterile fashion. Pfannenstiel skin incision was made with the scalpel and carried through to the underlying layer of fascia with the scalpel. Fascia was nicked in the midline and the incision extended laterally. The rectus bellies were dissected off superiorly and inferiorly with out complication both sharply and bluntly. The peritoneum was entered digitally. The incision was stretched and a low transverse uterine incision was made with the scalpel. The 's head was delivered atraumatically followed by the anterior and posterior shoulders without complication the rest of the delivered. The cord was clamped and cut and the infant was handed off to awaiting nurse. The placenta was delivered spontaneously immediately following and was noted to be intact and have a three-vessel cord. The uterus was exteriorized cleared of all clots and debris, and the incision was closed in a single layer closure using #1 Monocryl. The ovaries and fallopian tubes were noted to be within normal limits. The uterus was returned to the maternal abdomen and gutters were cleared of all clots and debris. The peritoneum was closed with 3-0 Monocryl in a running fashion. Gloves were changed prior to fascial closure. Fascia was closed with 0 PDS in a running fashion. Subcutaneous tissue was copiously irrigated and the skin was closed with 3-0 Monocryl in a subcuticular fashion. Mepilex dressing was applied without complication. Patient was taken to recovery in stable condition. It was discussed with the patient that based on the clinical information obtained during this encounter, combined with her history, at this time I would recommend cesareans for future deliveries if further pregnancies are desired. Amniotic Membrane Rupture Type: Artificial Amniotic Fluid Description: Clear Placenta Disposition: [facility] Cord Vessel Description: 3 Vessels Delayed Cord Clamping: Yes Complications Risks of Surgery Discussed w/Patient: Bleeding, Infection, Need for Future C-Sections and Injury to surrounding structure(s) including bowel and bladder Vaginal Delivery Complication Complications: None Admit VTE Documentation VTE Present on Admission: No VTE Mechan Device Prophylaxis: SCD's Procedures Urinary/Genital [id number]: [id number] Delivery [facility]
[2022-08-07 17:17] LABS: Syphilis Antibodies Non-reactive
[2022-08-07 17:25] LABS: Bedside Glucose 77 mg/dL (74-106)
[2022-08-07] MEDS: Sodium Citrate/Citric Acid 30 ML UDC PO (18:19)
[2022-08-07] MEDS: Albuterol 2.5 MG/3 ML VIAL.NEB. INHALATION (18:19)
[2022-08-07] MEDS: Clindamycin 900 MG/50 ML BAG 75 MG IV (18:49)
--- NOTE | 2022-08-07 19:35 | DCINST_ITS ---
Discharge Instructions Diet Discharge Diet: No restrictions Activity Discharge Activity: Return to Normal Activity, May Drive (when pain free and off narcotic pain meds), May Shower and May Take a Tub Bath (in 4 weeks) May resume sexual activity in: 6 weeks Weight Bearing Status: Full weight bearing Lifting Restrictions: under 30 lbs for 6 weeks Dressing / Incision Call your doctor if your incision/area has: Continuous Slow Oozing, Sudden Increased Bleeding, Increased Pain/ Swelling, Increased Redness, Foul Smelling Discharge and - Call your doctor if you observe: Fever of 101 or Higher, Using more than 1 pad per hour, Shortness of breath, Chest pain and Uncontrolled pain Suture Line Care: Avoid Pulling/Pushing and Avoid Pinching/Bending Change Dressing in: 1 week (leave open to air after removed) Remove Dressing in: 1 week (if present) Cleanse incision/area with: Soap & Water and Keep Dressing Clean & Dry Follow Up Care Please Follow Up With: Landy Villalta MD When: Call to make an appointment with your doctor for a postop visit in 2 and 6 weeks. Test Results: Test results from this visit will be discussed in further detail at your follow- up appointment, if applicable. Discharge Plan Admission Admit Date/Time: 08/07/22 15:40 Attending Provider: Landy Villalta Primary Care Provider: Dong Aldridge Discharge Orders/Prescriptions Prescriptions: New oxycodone-acetaminophen [Percocet] 5-325 mg tablet 1 tab PO Q6H PRN (Reason: pain) 7 Days Qty: 20 0RF naproxen [naproxen] 500 mg tablet 500 mg PO BID PRN PRN (Reason: Pain) Qty: 30 1RF Continued PNV-DHA 27 mg iron-1 mg -300 mg capsule 2 cap PO DAILY ergocalciferol (vitamin D2) 1,250 mcg (50,000 unit) capsule 1,250 mcg PO QWEEK albuterol sulfate [ProAir HFA] 90 mcg/actuation HFA aerosol inhaler 1 - 2 puff inhalation Q4H PRN PRN (Reason: Asthma) Qty: 8.5 1RF (DME) blood-glucose meter Misc See Rx Instructions .ROUTE .MEDSUPPLY Qty: 1 0RF Rx Instructions: As directed- Test fasting and 2 hours after meals (DME) lancets Misc See Rx Instructions .ROUTE .MEDSUPPLY Qty: 100 4RF Rx Instructions: As directed (DME) Blood Glucose Test Strip See Rx Instructions .Route Qty: 50 9RF Rx Instructions: As directed hydroxyzine pamoate [Vistaril] 50 mg capsule 50 mg PO BID PRN (Reason: anxiety) Qty: 30 3RF sertraline 150 mg capsule 150 mg PO DAILY Qty: 90 0RF Referrals / Follow Up: Dong Aldridge MD [Primary Care Provider] - Disposition Disposition (needs filled in before D/C Order can be placed): Home, Self Care
[2022-08-07] MEDS: Oxytocin 15 Units/NS 250ml 15 UNITS/250 ML IV.SOLN 83 UNITS IV (19:59)
[2022-08-07] MEDS: miSOPROStol 200 MCG Tablet 1000 MCG RC (20:34)
[2022-08-07] MEDS: 0.9% Saline Lock 10 ML Syringe IV ×4 (20:40→21:30)
[2022-08-07] MEDS: Ketorolac 30 MG/ML Syringe IV (21:30)
[2022-08-07 21:45] LABS: Bedside Glucose 90 mg/dL (74-106)
[2022-08-07] MEDS: Lactated Ringers 1,000 ML 100 ML IV (23:17)
[2022-08-08] VITALS (15 sets, daily range): BP systolic 104–118; BP diastolic 53–72; PULSE 71–102; RESP 16–19; TEMP 36.3–36.5; O2SAT 95–99
[2022-08-08] MEDS: Lactated Ringers 1,000 ML 999 ML IV (03:02)
[2022-08-08] MEDS: Acetaminophen 500 MG Tablet 1000 MG PO ×3 (06:19→18:24)
[2022-08-08 06:31] LABS: Hematocrit 32.8 % (37-47); Hemoglobin 10.4 g/dL (12.0-15.0); Mean Corp Hgb Conc 31.7 g/dL (32-36); Mean Corpuscular Hgb 25.9 pg (27.0-32.0); Mean Corpuscular Volume 81.6 fL (81-99); Mean Platelet Vol. 11.3 fl (6.2-12.0); Platelet Count 226 K/mm3 (150-450); RBC Distribution Width CV 14.5 % (11.6-14.6); RBC Distribution Width SD 42.5 fl (35.1-43.9); Red Blood Count 4.02 M/mm3 (4.2-5.4); White Blood Count 9.3 K/mm3 (4.4-11.0)
[2022-08-08 06:45] LABS: Bedside Glucose 77 mg/dL (74-106)
--- NOTE | 2022-08-08 07:46 | NURSING ---
Anderson catheter out at 08/08/2022 at 0318
--- NOTE | 2022-08-08 07:54 | PCM.PN.OB ---
Subjective Subjective Patient doing well without complaints. Tolerating PO. Ambulating and voiding without difficulty. Feeding well. Denies chest pain, shortness of breath, calf pain/swelling, fevers, chills, lightheadedness. Objective Data Objective Data Vital Signs: Vital Signs Temp Pulse Resp BP Pulse Ox O2 Del Method 97.5 F L 75 16 104/72 97 Room Air 08/08/22 01:51 08/08/22 06:51 08/08/22 06:51 08/08/22 03:51 08/08/22 06:51 08/08/22 06:51 Oxygen Delivery Method Room Air Weight: 255 lb 8.252 oz Body Mass Index (BMI) 40.0 Intake & Output: Intake and Output for Last 24 Hours 08/06/22 08/07/22 08/08/22 23:59 23:59 23:59 Intake Total 1702.75 / 1702.75 1375 / 1375 Output Total 1975 / 1975 101 / 101 Balance -273.25 / -273.25 1274 / 1274 Lab / Micro Data Attestation: I reviewed the patient's lab results. Result Diagrams: 08/08/22 06:15 08/07/22 14:25 Labs: Laboratory Results - last 24 hr 08/07/22 14:25: WBC 8.0, RBC 4.45, Hgb 11.9 L, Hct 35.8 L, MCV 80.4 L, MCH 26.7 L, MCHC 33.2, RDW Std Deviation 42.1, RDW Coeff of Natalya 14.5, Plt Count 266, MPV 11.2 08/07/22 14:25: Creatinine 0.55, Estim Creat Clear Calc 156.02, Est GFR (MDRD) Af Amer 178, Est GFR (MDRD) Non-Af 147, Uric Acid 5.0, AST 13 L, ALT 19 08/07/22 14:50: U Random Total Protein 116.6 H, Urine Creatinine 265.00, Protein/Creatinin Ratio 440 H 08/07/22 16:00: WBC 8.0, RBC 4.71, Hgb 12.4, Hct 37.6, MCV 79.8 L, MCH 26.3 L, MCHC 33.0, RDW Std Deviation 42.3, RDW Coeff of Natalya 14.6, Plt Count 295, MPV 11.5, Immature Gran % (Auto) 0.400, Neut % (Auto) 66.0, Lymph % (Auto) 25.3, [place]ell % (Auto) 7.8, Eos % (Auto) 0.0, Baso % (Auto) 0.5, Absolute Neuts (auto) 5.3, Absolute Lymphs (auto) 2.03, Nucleated RBC % 0 08/07/22 16:00: Blood Type A NEGATIVE, Antibody Screen NEGATIVE 08/07/22 16:00: Syphilis Total Ab Non-reactive 08/07/22 16:45: POC Glucose 77 08/07/22 20:10: POC Glucose 90 08/07/22 22:50: Screen NEGATIVE, Baby's Blood Type A POSITIVE, Baby's ANGÉLICA NEGATIVE 08/08/22 06:09: POC Glucose 77 08/08/22 06:15: WBC 9.3, RBC 4.02 L, Hgb 10.4 L, Hct 32.8 L, MCV 81.6, MCH 25.9 L, MCHC 31.7 L, RDW Std Deviation 42.5, RDW Coeff of Natalya 14.5, Plt Count 226, MPV 11.3 ROS Constitutional Constitutional: Reports systems reviewed and no addt'l complaints, except as documented; Denies anorexia or headache(s) Cardiovascular Cardiovascular: Reports systems reviewed and no addt'l complaints, except as documented; Denies dizziness, dyspnea, nausea or tachypnea Respiratory/Chest Respiratory/Chest: Reports systems reviewed and no addt'l complaints, except as documented; Denies cough, dyspnea, shortness of breath at rest or tachypnea Gastrointestinal Gastrointestinal: Reports systems reviewed and no addt'l complaints, except as documented; Denies abdominal pain, constipation or nausea Genitourinary Genitourinary: Reports systems reviewed and no addt'l complaints, except as documented; Denies burning urination, difficulty urinating, dysuria, urinary frequency or urinary incontinence Musculoskeletal Musculoskeletal: Reports systems reviewed and no addt'l complaints, except as documented Integumentary Integumentary: Reports systems reviewed and no addt'l complaints, except as documented Neurologic Neurologic: Reports systems reviewed and no addt'l complaints, except as documented; Denies abnormal speech, dizziness or headache(s) Psychiatric Psychiatric: Reports systems reviewed and no addt'l complaints, except as documented Endocrine Endocrinology: Reports systems reviewed and no addt'l complaints, except as documented Hematologic/Lymphatic Hematologic/Lymphatic: Reports systems reviewed and no addt'l complaints, except as documented Physical Exam Const alert, oriented x3 and no apparent distress Neck full ROM Resp normal respiratory effort, normal air movement and no retractions Effort and Inspection: able to speak in complete sentences and symmetric chest movement GI soft to palpation Bladder / Kidney Exam: bladder normal to palpation Uterus Palpation: uterus fundus firm (U) Extremity normal to inspection and full ROM Psych mental status grossly normal, thought process normal and cooperative Assessment & Plan (1) Rh negative status during : COMMENT: Rhogam @ 28 weeks and PRN bleeding. Rhogam given 06/07/22 PLAN: Rhogam - A+ blood type (2) Depression: COMMENT: sertraline 150mg daily, stable PLAN: stable on medication, continue at D/C (3) delivery delivered: COMMENT: RLTCS 38 preeclampsia girl [place] PLAN: s/p LTCS PPD # 1 1. routine post care 2. formula feeding- support given 3. rh negative-rhogam ordered 4. rubella immune (4) Gestational diabetes: COMMENT: check BS PLAN: 2 hour GTT -6 weeks Charges/Coding Multi Select Codes Urinary/Genital Urinary/Genital CPT Codes: No Charge
[2022-08-08] MEDS: 0.9% Saline Lock 10 ML Syringe IV ×2 (10:20→16:42)
[2022-08-08] MEDS: Ketorolac 30 MG/ML Syringe IV ×2 (10:20→16:41)
[2022-08-08] MEDS: Enoxaparin 40 MG/0.4 ML Syringe SC (10:21)
[2022-08-08] MEDS: Sertraline 100 MG Tablet 150 MG PO (10:21)
[2022-08-08] MEDS: Senna/Docusate Sodium 1 Tablet PO (10:21)
[2022-08-08] MEDS: Naproxen 500 MG Tablet PO (22:33)
[2022-08-09] MEDS: Acetaminophen 500 MG Tablet 1000 MG PO ×2 (00:29→06:28)
[2022-08-09 02:03] VITALS: BP 114/64; PULSE 73; RESP 16; TEMP 36.4; O2SAT 96
[2022-08-09] MEDS: Naproxen 500 MG Tablet PO (06:28)
[2022-08-09 07:57] VITALS: BP 117/60; PULSE 83; RESP 18; TEMP 36.6; O2SAT 97
--- NOTE | 2022-08-09 07:59 | PN.OBGYN_ITS ---
Subjective Subjective Patient doing well without complaints. Tolerating PO. Ambulating and voiding without difficulty. Feeding well. Denies chest pain, shortness of breath, calf pain/swelling, fevers, chills, lightheadedness. Objective Data Objective Data Vital Signs: Vital Signs Temp Pulse Resp BP Pulse Ox O2 Del Method 97.9 F 83 18 117/60 97 Room Air 08/09/22 07:57 08/09/22 07:57 08/09/22 07:57 08/09/22 07:57 08/09/22 07:57 08/09/22 07:57 Oxygen Delivery Method Room Air Weight: 255 lb 8.252 oz Body Mass Index (BMI) 40.0 Intake & Output: Intake and Output for Last 24 Hours 08/07/22 08/08/22 08/09/22 23:59 23:59 23:59 Intake Total 1702.75 / 1702.75 1375 / 1375 Output Total 1975 / 1975 1950 / 1950 Balance -273.25 / -273.25 -576 / -576 Lab / Micro Data Result Diagrams: 08/08/22 06:15 08/07/22 14:25 Physical Exam Const alert and oriented x3 HEENT normocephalic Eyes PERRL Neck full ROM Resp normal respiratory effort GI soft to palpation GI Narrative: FF below U. Dressing dry and intact Palpation: tender other (appropriately) Assessment & Plan (1) [facility]: [facility] [place] (2) Gestational diabetes: COMMENT: check BS :enc to check some at home. Will do 2 hr pp glucose at 6 wk (3) Depression: COMMENT: sertraline 150mg daily, stable (4) Rh negative status during : PLAN: Plan s/p LTCS PPD # 2 1. routine post care 2. bottle feeding- support given 3. rh negative 4. rubella immune 5. home today
[2022-08-09] MEDS: Enoxaparin 40 MG/0.4 ML Syringe SC (09:56)
[2022-08-09] MEDS: Sertraline 100 MG Tablet 150 MG PO (09:56)
[2022-08-09] MEDS: Senna/Docusate Sodium 1 Tablet PO (09:56)
[2022-08-09 12:55] VITALS: BP 124/77; PULSE 94; RESP 18; TEMP 36.6; O2SAT 97
== END 2022-08-09 13:05 | disposition home or self-care (01) | DRG 788 ==
LOC: WPOUT 15:43 → WP 15:44
PROVIDERS: Registered Nurse; Admitting Provider Obstetrics & Gynecology; PCP Family Medicine; Visit Provider Obstetrics & Gynecology
DX: O14.94 Unspecified pre-eclampsia, complicating childbirth (principal); O24.429 Gestational diabetes mellitus in childbirth, unspecified control; F32.A Depression, unspecified; J30.2 Other seasonal allergic rhinitis; Z37.0 Single live birth; O99.52 Diseases of the respiratory system complicating childbirth; Z87.891 Personal history of nicotine dependence; O99.344 Other mental disorders complicating childbirth; Z3A.37 37 weeks gestation of pregnancy; O99.214 Obesity complicating childbirth; Z67.91 Unspecified blood type, Rh negative
CPT/HCPCS: 59025; 59050; 82565; 82570; 82962; 84156; 84450; 84460; 84550; 85025; 85027; 85461; 86780; 86850; 86900; 86901; 94640; 99221; J7120; A4216; G0378; J2405; J2790

== ENCOUNTER → 2023-01-03 | Outpatient (CLI) | payer BC, SELFPAY ==
[2023-01-03 15:42] LABS: Hemoglobin A1c 5.2 % (3.8-5.6)
[2023-01-03 15:51] LABS: Vitamin D,25 Hydroxy 22.4 ng/mL
== END | disposition home or self-care (01) ==
LOC: MFPLAB 11:06
PROVIDERS: PCP Family Medicine; Visit Provider Family Medicine
DX: E55.9 Vitamin D deficiency, unspecified (principal); R73.9 Hyperglycemia, unspecified
CPT/HCPCS: 36415; 82306; 83036

== ENCOUNTER → 2023-05-29 | Outpatient (CLI) | payer BC, SELFPAY ==
--- OUTSIDE RECORDS SUMMARY | 2023-05-29 09:34 | XMS RPT_ITS | CCD ---
Author Name Unknown Address [address] [place] [address] Organization [facility] Care Team Providers Care Child Care Coordinator Name Role Phone SARAH GALLARDO Attending Unavailable RENA SAHU Referring Unavailab EDIE Sanchez Primary Care Unavailable Results Test Name Value Interpretation Reference Range Facil ity Encounters Encounter Date Encounter Type Care Provider Facility Start: 03-28-2022 End: 03-28-2022 ambulatory SARAH GALLARDO [facility] Payers Date Payer Category Payer Unknown [id number] Unknown [id number] Progress note 02-28-2021 Note Date & Type Note Facility 02-28-2021 Note HNO ID: [id number] Author: Lisa Stock APRN.CARDIAC NURSE SPECIALIST Service: ? Author Type: Nurse Practitioner Type: Progress Notes Filed: 02/28/2021 4:00 PM Note Text: Xuan Riggins is a 20 year old female who presents for problem visit Missed menses for 3 month(s). HPI: Patient presents today with missed menses for the past 3 months. Her and her have been actively trying for for over 1 year now. Up until December cycles have been regular and she has been doing ovulation kits that shows that she is ovulating. She has taken several HPT's are all negative. She states that with her 1st she did not know she was until 5 months along tests were negative up until that point. She also had a urine sample done for her work health exam that showed a potential UTI, today's sample was negative for any infection. PAST MEDICAL HISTORY Diagnosis Date - NEGATIVE MEDICAL HISTORY PAST SURGICAL HISTORY Procedure Laterality Date - SECTION HX 10/25/2018 FAMILY HISTORY Problem Relation Age of Onset - Arthritis Mother - Hypertension Mother - Diabetes Mother - other ([place]) Mother - Thyroid Mother - Hypertension Father - Arthritis Father - Stroke Father - Heart Sister - Thyroid Sister - No Known Problems Sister - Autism Brother - No Known Problems Daughter Social History Tobacco Use - Smoking status: Never Smoker - Smokeless tobacco: Never Used Vaping Use - Vaping Use: Never used Substance Use Topics - Alcohol use: Never - Drug use: Never No current outpatient medications on file. No current facility-administered medications for this visit. Allergies As of Date: 02/28/2021 (Not on File) Fully Assessed 02/28/2021 REVIEW OF SYSTEMS Abdomen: No bloating, early satiety, indigestion, or increased flatulence. No abdominal pain, nausea, vomiting, diarrhea, or constipation. Bladder: No dysuria, gross hematuria, urinary frequency, urinary urgency, or incontinence. Expanded ROS: N/A Allergies and current medication updated:Yes EXAM: BP 124/76 Ht 5' 6 (1.68m) Wt 240 lb (108.9kg) LMP 12/24/2020 BMI 38.76 kg/(m2). GENERAL: pleasant, female in no apparent distress HEENT: Normocephalic, atraumatic, mucus membranes moist and no lesions CHEST: Normal inspiratory effort NEURO: alert and oriented x3,exam grossly non-focal EXTREMITIES: normal ASSESSMENT/PLAN: 1. Irregular menses - ICD9: 626.4, ICD10: N92.6 - HCG QUAL UR B/O- negative - HCG QUANTITATIVE- if negative needs f/u with CNM or MD to discuss infertility - ESTRADIOL-17B BLD - FSH BLD Lsia Stock, [employer]IM[employer] Medical Decision Making: Problems: Moderate: New problem with uncertain prognosis Data: Unique test(s) ordered: 3+ Risk: Low: Low risk from testing/treatment Medical Decision Making Level: 4 - Moderate [facility] Summary Purpose Family History No Family History Records FoundNo Family History Records Found Advance Directives No Advanced Directives Records FoundNo Advanced Directives Records Found Additional Source Comments INFORMATION SOURCE (unrecogn ized section and content) DATE CREATED AUTHOR AUTHOR'S ORGANIZ ATION 03/29/2022 [facility] FOR RECORDS PERTAINING TO PATIENTS WHO ARE OR HAVE BEEN ENROLLED IN A CHEMICAL DEPENDENCY/SUBSTANCEABUSE PROGRAM, SOME INFORMATION MAY BE OMITTED. This clinical summary was aggregated from multiple sources. Caution should be exercised in using it in the provision of clinical care. This summary normalizes information from multiple sources, and as a consequence, information in this document may materially change the coding, format and clinical context of patient data. In addition, data may be omitted in some cases. CLINICAL DECISIONS SHOULD BE BASED ON THE PRIMARY CLINICAL RECORDS. [facility] provides no warranty or guarantee of the accuracy or completeness of information in this document.
[2023-05-29 11:07] LABS: Hepatitis B Surface Antibody Non-Reactive; Rubella IgG Reactive (Nonreactive)
[2023-05-30 14:08] LABS: EBV Acute VCA IgM < 36.0 U/mL (0.0-35.9); EBV Nuclear Antigen IgG < 18.0 U/mL (0.0-17.9); EBV-VCA IgG < 18.0 U/mL (0.0-17.9); Mumps Antibody,IgG 63.6 AU/mL (Immune >10.9); V-Zoster IgG (Immunity) 636 index (Immune >165)
== END | disposition home or self-care (01) ==
LOC: LAB 09:08
PROVIDERS: PCP Family Medicine; Referring Provider Family Medicine; Visit Provider Family Medicine
DX: Z01.84 Encounter for antibody response examination (principal)
CPT/HCPCS: 36415; 86664; 86665; 86706; 86735; 86762; 86765; 86787

== ENCOUNTER → 2024-01-22 | Outpatient (CLI) | payer BC, SELFPAY ==
[2024-01-22 12:22] LABS: Absolute Lymphocyte Count 3.38 X10^3/uL (0.83-4.51); Absolute Neutrophil Count 3.7 X10^3/uL (2.0-7.7); Basophil# 0.07 X10^3/uL; Basophil% 0.9 % (0-1); Eosinophil# 0.01 X10^3/uL; Eosinophils% 0.1 % (0-5); Hematocrit 45.9 % (37-47); Lymphocyte # 3.38 X10^3/ul (0.83-4.51); Lymphocyte % 43.7 % (19-41); Mean Corp Hgb Conc 32.7 g/dL (32-36); Mean Corpuscular Hgb 27.8 pg (27.0-32.0); Mean Corpuscular Volume 85.2 fL (81-99); Mean Platelet Vol. 9.6 fl (6.2-12.0); Monocyte# 0.52 X10^3/uL; Monocyte% 6.7 % (0-10); NRBC Flagged by Analyzer 0 % (0-5); Neutrophil # 3.72 X10^3/uL (2.7-7.7); Neutrophil % 48.1 % (47-70); Platelet Count 416 K/mm3 (150-450); RBC Distribution Width CV 13.4 % (11.6-14.6); RBC Distribution Width SD 41.9 fl (35.1-43.9); Red Blood Count 5.39 M/mm3 (4.2-5.4); White Blood Count 7.7 K/mm3 (4.4-11.0)
[2024-01-22 13:05] LABS: AST(SGOT) 9 U/L (15-37); Alanine Aminotransfer ALT/SGPT 16 U/L (13-56); Albumin, Serum 3.9 g/dL (3.2-5.0); Alkaline Phosphatase 55 U/L (45-117); Anion Gap 5 (5-15); BUN 9 mg/dL (7-18); BUN/Creat Ratio 11.4 RATIO (10-20); Calcium,Total 9.2 mg/dL (8.5-10.1); Chloride 105 mmol/L (98-107); Creatinine, Serum 0.79 mg/dL (0.55-1.02); EST Glomerular Filtration Rate 95 mL/min (>60); Est Glom Filt Rate - Afr Amer 115 mL/min (>60); Glucose 111 mg/dL (74-106); Protein, Total 7.9 g/dL (6.4-8.2); Sodium Level 138 mmol/L (136-145); T4 Free Direct 0.88 ng/dL (0.76-1.46)
[2024-01-22 13:11] LABS: Hemoglobin A1c 5.5 % (3.8-5.6)
[2024-01-23 12:10] LABS: PROLACTIN 7.7 ng/mL (4.8-33.4)
[2024-01-23 13:08] LABS: PROGESTERONE 0.1 ng/mL (.)
== END | disposition home or self-care (01) ==
LOC: LAB 11:52
PROVIDERS: PCP Family Medicine; Referring Provider Nurse Practitioner Family; Visit Provider Nurse Practitioner Family
DX: N92.6 Irregular menstruation, unspecified (principal); Z13.29 Encounter for screening for other suspected endocrine disorder
CPT/HCPCS: 36415; 80053; 82627; 82670; 83036; 84144; 84146; 84439; 84443; 85025; 82626

== ENCOUNTER 2024-01-27 17:15 | Emergency (ER) | payer BC, SELFPAY ==
[2024-01-27 17:15] VITALS: O2SAT 99
[2024-01-27 17:16] VITALS: BP 148/107; PULSE 93; RESP 30; TEMP 37; O2SAT 99; BMI 38.5
--- NOTE | 2024-01-27 17:22 | EDS_ITS ---
HPI History of Present Illness Chief Complaint: Chest Pain [facility] Medical History Piercing Pierced tongue Wears contact lenses Wears glasses Depression Restless legs Migraine headache Gastric reflux Former smoker Shortness of breath on exertion History of edema delivery delivered Pre-eclampsia in puerperium Anxiety Asthma Gestational diabetes mellitus (GDM) affecting Home Medications ?Medication ?Instructions ?Recorded ?Last Taken ?Type NK 01/27/24 Unknown History Allergy/AdvReac Type Severity Reaction Status Date / Time kiwi Allergy Hives Verified 01/27/24 17:16 Penicillins Allergy Hives Verified 01/27/24 17:16 Family History Father Hypertension Epilepsy AVM (arteriovenous malformation) Mother FRANCO (nonalcoholic steatohepatitis) Hypertension Epilepsy Surgical History H/O removal of cyst S/P Social History adopted: No household members: spouse and children number of children: 1 current occupational status: unemployed current occupation: [employer] current occupational exposures/hazards: No pets and animals: Yes (Not managing the litterbox) pets and animals: cat(s) history of recent travel: No sexually active: Yes Smoking Status: Former smoker Tobacco: How many years used: 1 how long ago did patient quit smokin years alcohol intake: never substance use type: does not use well-balanced diet: about half the time caffeine: Yes Type: carbonated beverages Number of servings: 1 eating out: 4 or more times/week during the past year weight has: remained stable what type of physical activity do you participate in: none suzette/taoism: Restorationism seatbelt use: always do you feel safe at home: Yes additional social history: Denies vaping, denies aspirin use, uses Ibuprofen, denies marijuana, denies edibles. EXAM Physical Exam Const Vital Signs: 01/27/24 17:15 01/27/24 17:16 01/27/24 17:24 Temperature 98.6 F Temperature Source Oral Pulse Rate 93 Respiratory Rate 30 H Respiratory Effort Blood Pressure 148/107 H Blood Pressure Mean 120 Pulse Ox 99 99 Oxygen Delivery Method Nasal Cannula Room Air Room Air Oxygen Flow Rate (L/min) 2 99 01/27/24 18:11 01/27/24 19:00 01/27/24 19:50 Temperature Temperature Source Pulse Rate 88 80 79 Respiratory Rate 17 18 18 Respiratory Effort Blood Pressure 122/88 H 119/78 119/76 Blood Pressure Mean 99 91 90 Pulse Ox 98 95 97 Oxygen Delivery Method Room Air Room Air Room Air Oxygen Flow Rate (L/min) 01/27/24 20:23 Temperature Temperature Source Pulse Rate Respiratory Rate Respiratory Effort Normal Non-Labored Blood Pressure Blood Pressure Mean Pulse Ox Oxygen Delivery Method Oxygen Flow Rate (L/min) [facility] MDM Narrative Medical decision making narrative: HISTORY OF PRESENT ILLNESS: 23-year-old female presents with chest pain. Per triage note patient is having her mid episodes of severe chest pain. Notes episode last proximate 30 minutes. She notes she became very anxious her breathing very fast had numbness in both hands. The patient denies recent surgery in the last 4 weeks or immobilization in the last 3 days, denies previous diagnosis of DVT or PE, hemoptysis, unilateral leg swelling or malignancy with treatment the last 6 months or palliative. No estrogen use noted. Patient denies sudden onset of pain, no tearing sensation, no migratory symptoms, no new numbness, weakness or loss of sensation. Patient denies family history or personal history of Connective tissue disorders (Marfan's Syndrome, Marlon Danlos etc) REVIEW OF SYSTEMS: Pertinent positives: Chest pain Pertinent negatives: Vomiting, leg swelling, focal weakness PHYSICAL EXAM: Nursing triage notes reviewed, Vital signs reviewed Constitutional: please see mdm HENT: MMM Eyes: Pupils equal round and reactive to light, Extraocular muscles intact Neck: No stridor, no JVD, full neck ROM Lungs: Clear to auscultation, No wheezing or rales. No increased work of breathing, no conversational dyspnea, no accessory muscle use, no nasal flaring. No respiratory distress noted Heart: Regular rate and rhythm, No murmurs, No rubs and No gallops, 2+ distal pulses (radial, femoral, posterior tibial) in all extremities Abdomen: Soft, there is no tenderness, rigidity, rebound or guarding, no obvious peritoneal signs, no palpable pulsatile abdominal masses, no auscultated abdominal bruit : No CVAT Extremities: No edema Neuro: No focal neurological deficits, cranial nerves II through XII intact, 5/5 strength in all extremities. Intact sensation to light touch in all extremities, 2+ reflexes bilateral patella tendons. Normal gait. No ataxia. Skin: No rash or lesions noted MEDICAL DECISION MAKING: Chief Complaint: Chest pain External records reviewed: No recent cardiac catheterizations, stress test or echocardiograms noted in the chart Factors affecting care: Depression, anxiety, asthma Social determinants of health: Denies drug use History obtained from others: none Consults: none MDM Narrative: Patient was initially hemodynamically stable, tachypneic and respirate 30, otherwise afebrile saturating 99% room air I considered the following differential diagnosis: Arrhythmia, ACS, anxiety, anemia, PE, aortic dissection I obtained a broad lab and imaging workup to further elucidate etiology patient complaint. I treat the patient. Cleared aspirin initially. While considered PE and or dissection the patient had no history of physical exam findings that were suggestive ALL IMAGES (IF OBTAINED) HAVE BEEN PERSONALLY REVIEWED AND INTERPRETED BY MYSELF. EKG with normal sinus rhythm, normal axis, normal intervals, no STEMI, no signs of pericarditis, WPW, ARVD, Brugada syndrome, signs of pericardial fusion, signs of right heart strain. High-sensitivity troponin is negative, no evidence of myocardial ischemia x 2 CBC with leukocytosis suggestive of systemic inflammation, no anemia, no thrombocytopenia BMP without evidence of significant electrolyte abnormalities, no anion gap, no acute kidney injury. I have personally reviewed the patient's chest x-ray. Chest x-ray is unremarkable for pulmonary edema, pneumothorax, pneumonia or focal cardiopulmonary abnormality. On reevaluation patient respirate improved to 18 The synthesis of the patient's history, physical exam, labs images suggest no acute life or limb cardiology of the chest specifically no sign of PE, aortic dissection, ACS, anemia, arrhythmia, pneumothorax, pericarditis, the patient is low risk heart score and as such is appropriate discharge home for close outpatient follow-up for further testing The patient and/or family, caregivers express understanding. The patient and/or family, caregivers agrees with the plan. Shared decision making: I will have a discussion with the patient and or visitors regarding risk/benefits of further testing or admission. They will be made aware of of the risk/benefits inherent in this decision they will be given the opportunity to voice understanding. Total critical care time today provided was at least 0 minutes. This excludes separately billable procedures. Critical care time (if documented) is secondary to the patient having high probability of clinically significant/life threatening deterioration in the patient's condition which required my urgent intervention. Impression: 1. Chest pain 2. Hyperventilation Dispo: Discharge home This note was generated with [employer] dictation software. It may contain incorrect words, spelling, and punctuation that were not noted in review of the chart prior to signing. Lab Data Labs: Laboratory Results - last 24 hr 01/27/24 01/27/24 17:24 19:27 WBC 13.1 H RBC 5.71 H Hgb 15.9 H Hct 47.7 H MCV 83.5 MCH 27.8 MCHC 33.3 RDW Std Deviation 41.2 RDW Coeff of Natalya 13.5 Plt Count 419 MPV 9.7 Immature Gran % (Auto) 0.400 Neut % (Auto) 69.5 Lymph % (Auto) 26.0 [place] % (Auto) 3.8 Eos % (Auto) 0.1 Baso % (Auto) 0.2 Absolute Neuts (auto) 9.1 H Absolute Lymphs (auto) 3.40 Nucleated RBC % 0 Sodium 139 Potassium 3.6 Chloride 105 Carbon Dioxide 22.0 Anion Gap 12 BUN 6 L Creatinine 0.87 Estim Creat Clear Calc 128.44 Est GFR (MDRD) Af Amer 103 Est GFR (MDRD) Non-Af 85 BUN/Creatinine Ratio 6.9 L Glucose 137 H Calcium 9.2 Troponin I High Sens 3 < 3 L Radiography Diagnostic Testing: Clinical Impression(s) from Imaging Studies Chest X-Ray 01/27/24 17:35 IMPRESSION: No radiographic evidence of acute cardiopulmonary disease. Electronically Signed: Eloy Ovalle MD at 18:31 EDT Reading Location ID and State: [facility] / [place] , Service support , Discharge Plan Triage Chief Complaint: Chest Pain Other Complaint: Numb/Ting ED Provider: Cliff Tineo Dx/Rx/DC Orders Instructions: Chest Pain [facility] Ch Prescriptions: No Action NK Primary Care Provider: Dong Aldridge Referrals: Dong Aldridge MD [Primary Care Provider] - Activity Restrictions/Additional Instructions: Thank you for trusting us with your care today! Your labs images were reassuring for no signs of damage to your heart or other life-threatening pathologies in your chest. Please take Tylenol (2 pills, 650 mg), ibuprofen (2 pills, 400 mg) every 6 hours as needed for pain and fever control. Please return to the emergency department if your symptoms change or worsen. Please follow with your primary care physician for further outpatient evaluation and management. Print Language: Tamazight Disposition Disposition: Home, Self Care
--- NOTE | 2024-01-27 17:29 | NURSING ---
NO OLD EKGS
--- NOTE | 2024-01-27 17:35 | RAD_ITS ---
EXAM: XR CHEST, 1 VIEW CLINICAL INDICATION: chest pain TECHNIQUE: Frontal view of the chest. COMPARISON: No relevant prior studies available. FINDINGS: LUNGS AND PLEURAL SPACES: Unremarkable. No consolidation or edema. No pneumothorax. No effusion. HEART: Unremarkable. Cardiac silhouette not enlarged. MEDIASTINUM: Central airways and mediastinal contour are unremarkable. BONES/JOINTS: Unremarkable. No acute fracture. SOFT TISSUES: Unremarkable. RAD/Chest 1 View (Portable) IMPRESSION: No radiographic evidence of acute cardiopulmonary disease. Electronically Signed: Eloy Ovalle MD at 18:31 EDT ,
[2024-01-27 17:40] LABS: Absolute Neutrophil Count 9.1 X10^3/uL (2.0-7.7); Basophil# 0.03 X10^3/uL; Basophil% 0.2 % (0-1); Eosinophil# 0.01 X10^3/uL; Eosinophils% 0.1 % (0-5); Hematocrit 47.7 % (37-47); Hemoglobin 15.9 g/dL (12.0-15.0); Mean Corp Hgb Conc 33.3 g/dL (32-36); Mean Corpuscular Hgb 27.8 pg (27.0-32.0); Mean Corpuscular Volume 83.5 fL (81-99); Mean Platelet Vol. 9.7 fl (6.2-12.0); Monocyte# 0.49 X10^3/uL; Monocyte% 3.8 % (0-10); NRBC Flagged by Analyzer 0 % (0-5); Neutrophil # 9.08 X10^3/uL (2.7-7.7); Neutrophil % 69.5 % (47-70); Platelet Count 419 K/mm3 (150-450); RBC Distribution Width CV 13.5 % (11.6-14.6); RBC Distribution Width SD 41.2 fl (35.1-43.9); Red Blood Count 5.71 M/mm3 (4.2-5.4); White Blood Count 13.1 K/mm3 (4.4-11.0)
[2024-01-27] MEDS: Aspirin 81 MG TAB.CHEW 324 MG PO (17:40)
[2024-01-27 17:59] LABS: Anion Gap 12 (5-15); BUN 6 mg/dL (7-18); BUN/Creat Ratio 6.9 RATIO (10-20); Calcium,Total 9.2 mg/dL (8.5-10.1); Chloride 105 mmol/L (98-107); Creatinine, Serum 0.87 mg/dL (0.55-1.02); EST Glomerular Filtration Rate 85 mL/min (>60); Est Glom Filt Rate - Afr Amer 103 mL/min (>60); Estimated Creatinine Clearance 128.44 ml/min; Glucose 137 mg/dL (74-106); Potassium 3.6 mmol/L (3.5-5.1); Sodium Level 139 mmol/L (136-145); Troponin-I HS (w/2H Reflex) 3 pg/mL (3.0-54.0)
[2024-01-27 18:11] VITALS: BP 122/88; PULSE 88; RESP 17; O2SAT 98
[2024-01-27] MEDS: Ondansetron 4 MG/2 ML Vial IV (18:19)
[2024-01-27] MEDS: Ketorolac 15 MG/ML Vial IV (18:19)
[2024-01-27] MEDS: DiphenhydrAMINE 50 MG/ML Syringe 25 MG IV (18:25)
--- NOTE | 2024-01-27 18:26 | ED.RN ---
patient complaining of redness/rash on arms and face, as well as stiffness in hands/arms Dr. Tineo informed
[2024-01-27 19:00] VITALS: BP 119/78; PULSE 80; RESP 18; O2SAT 95
[2024-01-27 19:33] LABS: Reflex Troponin-HS? (from REC) Y
[2024-01-27 19:50] VITALS: BP 119/76; PULSE 79; RESP 18; O2SAT 97
[2024-01-27 20:22] LABS: Troponin-I HS < 3 pg/mL (3.0-54.0)
[2024-01-27 21:04] VITALS: BP 110/78; PULSE 82; RESP 18; TEMP 36.6; O2SAT 100
== END 2024-01-27 21:12 | disposition home or self-care (01) ==
PROVIDERS: Emergency Provider Emergency Medicine; PCP Family Medicine; Visit Provider Emergency Medicine
DX: R07.9 Chest pain, unspecified (principal); R06.4 Hyperventilation; Z87.891 Personal history of nicotine dependence
CPT/HCPCS: 71045; 80048; 84484; 85025; 93005; 96374; 96375; 99284; J7030; A4216; J2405

== ENCOUNTER → 2024-02-14 | Outpatient (CLI) | payer BC, SELFPAY ==
--- NOTE | 2024-02-14 12:47 | US_ITS ---
STUDY: ULTRASOUND OF THE FEMALE PELVIS - COMPLETE REASON FOR EXAM: Female, 23 years old. Amenorrhea LMP: 12 months ago. TECHNIQUE: Transabdominal and Transvaginal TECHNICAL QUALITY: Adequate. COMPARISON: None. FINDINGS: The uterus is anteverted and is in a midline position. The uterus measures 7.5 cm x 5.6 cm x 3.2 cm. There is a Nabothian cyst of the cervix. The endometrium measures 8.6 mm in thickness, and is heterogeneous (striated). There is no demonstrated endometrial mass. There is no demonstrated myometrial mass. I.U.D. - The patient does not have an I.U.D. The right ovary is visualized. The right ovary measures 4.2 cm x 2.5 sono by 2.7 cm. There is no right ovarian cyst or ovarian mass. There is no visualized right adnexal mass or complex lesion. There is normal arterial and normal venous vascularity. The left ovary is visualized. The left ovary measures 3.7 cm x 2.3 cm x 2 cm. There is no left ovarian cyst or ovarian mass. There is no visualized left adnexal mass or complex lesion. There is normal arterial and normal venous vascularity. There is no fluid in the cul-de-sac. Polycystic ovary disease: Yes. US/Pelvic w/ Transvaginal IMPRESSION: Multiple small follicles are seen in the peripheral aspect of both ovaries suggestive of possible polycystic ovary. Electronically Signed: Evangelist Boyer MD at 14:35 EDT ,
== END | disposition home or self-care (01) ==
PROVIDERS: PCP Family Medicine; Referring Provider Nurse Practitioner Family; Visit Provider Nurse Practitioner Family
DX: N92.6 Irregular menstruation, unspecified (principal)
CPT/HCPCS: 76830; 76856

== ENCOUNTER → 2024-06-17 | Outpatient (CLI) | payer BC, SELFPAY ==
[2024-06-17 17:52] LABS: Absolute Lymphocyte Count 3.45 X10^3/uL (0.83-4.51); Absolute Neutrophil Count 3.9 X10^3/uL (2.0-7.7); Basophil# 0.15 X10^3/uL; Basophil% 1.8 % (0-1); Eosinophil# 0.02 X10^3/uL; Eosinophils% 0.2 % (0-5); Hematocrit 45.7 % (37-47); Hemoglobin 14.9 g/dL (12.0-15.0); Lymphocyte # 3.45 X10^3/ul (0.83-4.51); Lymphocyte % 41.3 % (19-41); Mean Corp Hgb Conc 32.6 g/dL (32-36); Mean Corpuscular Volume 85.9 fL (81-99); Mean Platelet Vol. 10.6 fl (6.2-12.0); Monocyte# 0.73 X10^3/uL; Monocyte% 8.7 % (0-10); NRBC Flagged by Analyzer 0 % (0-5); Neutrophil # 3.94 X10^3/uL (2.7-7.7); Neutrophil % 47.2 % (47-70); Platelet Count 457 K/mm3 (150-450); RBC Distribution Width CV 14.2 % (11.6-14.6); RBC Distribution Width SD 43.6 fl (35.1-43.9); Red Blood Count 5.32 M/mm3 (4.2-5.4); White Blood Count 8.4 K/mm3 (4.4-11.0)
[2024-06-17 18:07] LABS: Vitamin B12 478 pg/mL (211-911); Vitamin D,25 Hydroxy 14.5 ng/mL
[2024-06-17 18:20] LABS: ALB/GLOB Ratio 0.9 RATIO (0.9-2.4); AST(SGOT) 18 U/L (15-37); Alanine Aminotransfer ALT/SGPT 104 U/L (13-56); Albumin, Serum 4.1 g/dL (3.2-5.0); Alkaline Phosphatase 57 U/L (45-117); Anion Gap 10 (5-15); BUN 9 mg/dL (7-18); BUN/Creat Ratio 10.8 RATIO (10-20); Calcium,Total 9.3 mg/dL (8.5-10.1); Chloride 103 mmol/L (98-107); Creatinine, Serum 0.83 mg/dL (0.55-1.02); EST Glomerular Filtration Rate 89 mL/min (>60); Est Glom Filt Rate - Afr Amer 108 mL/min (>60); Globulin 4.5 g/dL (2.2-4.2); Glucose 92 mg/dL (74-106); Potassium 3.8 mmol/L (3.5-5.1); Protein, Total 8.6 g/dL (6.4-8.2); Sodium Level 138 mmol/L (136-145)
== END | disposition home or self-care (01) ==
LOC: MFPLAB 15:23
PROVIDERS: PCP Family Medicine; Referring Provider Family Medicine; Visit Provider Family Medicine
DX: R53.83 Other fatigue (principal); E55.9 Vitamin D deficiency, unspecified
CPT/HCPCS: 36415; 80053; 82306; 82607; 84439; 84443; 85025

== ENCOUNTER → 2024-12-03 | Outpatient (CLI) | payer BC, SELFPAY | END | disposition home or self-care (01) | LOC: MFPLAB 16:27 | PROVIDERS: PCP Family Medicine; Visit Provider Nurse Practitioner Family | DX: N39.0 Urinary tract infection, site not specified (principal) | CPT/HCPCS: 87077; 87086; 87088; 87186 ==

== ENCOUNTER → 2025-02-10 | Outpatient (CLI) | payer BC, SELFPAY | END | disposition home or self-care (01) | PROVIDERS: PCP Family Medicine; Visit Provider Obstetrics & Gynecology | DX: Z12.4 Encounter for screening for malignant neoplasm of cervix (principal) | CPT/HCPCS: 88175; G0145 ==